=== PATIENT | female | born 1980 | race Caucasian/White ===

== ENCOUNTER 2019-01-07 16:21 | Outpatient (CLI) | payer OTHER | END 2019-01-07 17:28 | disposition home or self-care (01) | LOC: LAB 16:21 | DX: D68.8 Other specified coagulation defects (principal); D50.8 Other iron deficiency anemias ==

== ENCOUNTER → 2020-03-22 | Outpatient (CLI) | payer OTHER | END | disposition home or self-care (01) | LOC: PRENATAL 09:30 | DX: O35.3XX0 Maternal care for (suspected) damage to fetus from viral disease in mother, not applicable or unspecified (principal); O09.512 Supervision of elderly primigravida, second trimester; Z36.89 Encounter for other specified antenatal screening ==